=== PATIENT | female | born 2000 | race African-American/Black ===

== ENCOUNTER 2020-10-28 08:48 | Emergency (ER) | payer MEDICAID ==
[~2020-10-28] VITALS: Ht 152.4 cm; Wt 73.0 kg
[2020-10-28] MEDS ORDERED: CEFTRIAXONE SODIUM 500 MG/VIAL IM STA (09:06)
[2020-10-28 09:12] LABS: CLARITY URINE CLEAR (CLEAR); COLOR URINE YELLOW (YELLOW); KETONES URINE NEGATIVE (NEGATIVE); LEUKOCYTE ESTERASE URINE NEGATIVE (NEGATIVE); NITRITE URINE NEGATIVE (NEGATIVE); OCCULT BLOOD URINE NEGATIVE (NEGATIVE); PROTEIN URINE NEGATIVE (NEGATIVE); SPECIFIC GRAVITY URINE 1.026 (1.005-1.030)
[2020-10-28] MEDS ORDERED: LIDOCAINE HCL 1% 20ML VIAL (Pyxis) INJ INFIL ONE (09:15)
[2020-10-28] MEDS ORDERED: AZITHROMYCIN 500 MG TABLET PO ONE (09:15)
[2020-10-28 09:45] VITALS: BP 122/61
== END 2020-10-28 09:45 | disposition home or self-care (01) ==
LOC: ER 08:48
DX: N76.0 Acute vaginitis (principal); Z98.890 Other specified postprocedural states; Z11.3 Encounter for screening for infections with a predominantly sexual mode of transmission
CPT/HCPCS: 81003; 81025; 96372; 99283; J0696; J3490

== ENCOUNTER 2021-04-20 10:49 | Emergency (ER) | payer MEDICAID | END 2021-04-20 12:12 | disposition left against medical advice (07) | LOC: ER 10:49 | DX: Z53.21 Procedure and treatment not carried out due to patient leaving prior to being seen by health care provider (principal) ==

== ENCOUNTER 2021-05-05 20:15 | Emergency (ER) | payer MEDICAID ==
[~2021-05-05] VITALS: Ht 152.4 cm; Wt 73.0 kg
[2021-05-05 20:31] VITALS: BP 114/37
== END 2021-05-06 01:06 | disposition left against medical advice (07) ==
LOC: ER 20:24
DX: Z53.21 Procedure and treatment not carried out due to patient leaving prior to being seen by health care provider (principal)